=== PATIENT | female | born 1955 | race Caucasian/White ===

== ENCOUNTER → 2016-11-09 | Outpatient (CLI) | payer BC ==
[~2016-11-09] MED LIST: CALC-393 PO; CALC600T9 PO; MULTTAB5 PO; OMEG120013 PO
== END | disposition home or self-care (01) ==
LOC: C.LAB1850 07:26
PROVIDERS: ATTEND Internal Medicine
DX: E03.9 Hypothyroidism, unspecified (principal)

== ENCOUNTER → 2017-01-01 | Outpatient (CLI) | payer BC ==
[2017-01-01 13:21] LABS: ALT/SGPT 40 U/L (12-78); AST/SGOT 24 U/L (15-37); BLOOD UREA NITROGEN 14 mg/dl (7-18); BUN/CREATININE RATIO 14.9 (10-20); CALCIUM 8.7 mg/dl (8.5-10.1); CARBON DIOXIDE 26 mmol/L (21-32); CHLORIDE 109 mmol/L (98-107); CREATININE 0.92 mg/dl (0.60-1.20); GLUCOSE 106 mg/dl (70-99); POTASSIUM 3.9 mmol/L (3.5-5.1); SODIUM 142 mmol/L (136-145)
[2017-01-01 13:24] LABS: ALB/GLOB RATIO 1.1 (0.9-2); ALKALINE PHOSPHATASE 83 U/L (45-117); CHOLESTEROL 191 mg/dl (0-200); CHOLESTEROL/HDL RATIO 2.5; HDL CHOLESTEROL 76 mg/dl; LDL CHOLESTEROL CALCULATED 99 mg/dl; TRIGLYCERIDES 81 mg/dl (0-150); VERY LOW DENSITY LIPOPROT CALC 16 mg/dl
[2017-01-01 13:47] LABS: ESTIMATED AVERAGE GLUCOSE 117 mg/dl; HA1C FLAG Normal (Normal)
== END | disposition home or self-care (01) ==
LOC: C.LABPBG 07:59
PROVIDERS: ATTEND Internal Medicine
DX: Z00.00 Encounter for general adult medical examination without abnormal findings (principal)

== ENCOUNTER → 2017-09-01 | Outpatient (CLI) | payer BC ==
--- NOTE | 2017-09-01 16:00 | MAMMOGRAPHY REPORT ---
BILATERAL DIGITAL SCREENING MAMMOGRAM TOMOSYNTHESIS WITH CAD: 09/01/2017 TECHNIQUE: Breast tomosynthesis in addition to standard 2D mammography was performed. Current study was also evaluated with a Computer Aided Detection (CAD) system. COMPARISON: Comparison is made to exams dated: 12/26/2014 mammogram - [facility], 05/26/2011 mammogram, 05/22/2010 mammogram, and 05/20/2009 mammogram. BREAST COMPOSITION: There are scattered areas of fibroglandular density in both breasts. FINDINGS: No suspicious masses, calcifications, or areas of architectural distortion are noted in ei ther breast. There has been no significant interval change compared to prior exams. IMPRESSION: ACR BI-RADS CATEGORY 1: NEGATIVE There is no mammographic evidence of malignancy. A 1 year screening mammogram is recommended. The pa tient will receive written notification of the results. Approximately 10% of breast cancers are not detected with mammography. A negative mammographic report should not delay biopsy if a clinically suggestive mass is present. Joanna Crump M.D. ah/:09/01/2017 11:56:53 Extract Operator: Rachel EDUARDO(R)(M), [facility] letter sent: Normal 1/2 BI-RADS Code: ACR BI-RADS Category 1: Negative
== END | disposition home or self-care (01) ==
LOC: C.MAMM 11:28
PROVIDERS: ATTEND Internal Medicine
DX: Z12.31 Encounter for screening mammogram for malignant neoplasm of breast (principal)

== ENCOUNTER → 2018-01-01 | Outpatient (CLI) | payer BC ==
[2018-01-01 08:34] LABS: BASO % 1.1 %; BASO ABS # 0.05 K/uL (0-0.2); EOS % 1.5 %; EOS ABS # 0.07 K/uL (0-0.5); HEMATOCRIT 41.2 % (37-47); HEMOGLOBIN 14.5 g/dL (12.0-16.0); IG# 0.01 K/uL (0.00-0.02); LYMPH % 32.3 %; MEAN CELL VOLUME 87.8 fL (80-100); MEAN CORPUSCULAR HEMOGLOBIN 30.9 pg (25-34); MEAN CORPUSCULAR HGB CONC 35.2 g/dl (32-36); MEAN PLATELET VOLUME 8.8 fL (7.4-10.4); MONO % 6.7 %; MONO ABS # 0.31 K/uL (0.11-0.59); NEUT % 58.2 %; NEUT ABS # 2.71 K/uL (1.4-6.5); PLATELET COUNT 276 K/uL (130-400); WHITE BLOOD COUNT 4.65 K/uL (4.8-10.8)
[2018-01-01 08:45] LABS: HEMOGLOBIN A1C 5.8 % (4.5-5.6)
[2018-01-01 09:10] LABS: BLOOD UREA NITROGEN 13 mg/dl (7-18); CALCIUM 9.2 mg/dl (8.5-10.1); CARBON DIOXIDE 26 mmol/L (21-32); CHOLESTEROL 201 mg/dl (0-200); CREATININE 1.01 mg/dl (0.60-1.20); GLUCOSE 99 mg/dl (70-99)
[2018-01-01 09:18] LABS: ALKALINE PHOSPHATASE 85 U/L (45-117); ALT/SGPT 36 U/L (12-78); AST/SGOT 24 U/L (15-37); LDL CHOLESTEROL CALCULATED 114 mg/dl; POTASSIUM 3.7 mmol/L (3.5-5.1); SODIUM 140 mmol/L (136-145); TOTAL PROTEIN 7.3 gm/dl (6.4-8.2)
== END | disposition home or self-care (01) ==
LOC: C.LAB 08:10
PROVIDERS: ATTEND Internal Medicine
DX: Z00.00 Encounter for general adult medical examination without abnormal findings (principal); E78.5 Hyperlipidemia, unspecified; L92.0 Granuloma annulare; M54.9 Dorsalgia, unspecified; R73.09 Other abnormal glucose; E03.9 Hypothyroidism, unspecified

== ENCOUNTER → 2018-04-11 | Outpatient (CLI) | payer BC ==
[~2018-04-11] MED LIST changes: -CALC-393 PO; -CALC600T9 PO; +IBUP-1050 PO; +LEVO50TA6 PO; -OMEG120013 PO
[2018-04-11 16:59] LABS: ALBUMIN 3.9 gm/dl (3.4-5.0); ALKALINE PHOSPHATASE 78 U/L (45-117); ALT/SGPT 30 U/L (12-78); AST/SGOT 18 U/L (15-37); BLOOD UREA NITROGEN 13 mg/dl (7-18); CALCIUM 8.7 mg/dl (8.5-10.1); CARBON DIOXIDE 26 mmol/L (21-32); CREATININE 0.88 mg/dl (0.60-1.20); GLUCOSE 92 mg/dl (70-99); POTASSIUM 3.7 mmol/L (3.5-5.1); SODIUM 138 mmol/L (136-145); TOTAL PROTEIN 7.2 gm/dl (6.4-8.2)
== END | disposition home or self-care (01) ==
LOC: C.LABPBG 12:36
PROVIDERS: ATTEND Physician Assistant
DX: Z01.818 Encounter for other preprocedural examination (principal)

== ENCOUNTER → 2018-04-22 | Day surgery (SDC) | payer BC ==
[2018-04-06 10:12] VITALS: BMI 36.0
--- NOTE | 2018-04-21 14:38 | History and Physical ---
History & Physical Date Apr 21, 2018. Chief Complaint left foot pain History of Present Illness The patient is a 62 year old female with complaints of chronic left foot pain. She was treated conservatively for 1st MTP DJD but she failed all conservative management. She is now being set up for surgical tx. Past Medical/Surgical History PMH: hypothyroidism Past surgical hx: tubal ligation, tonsillectomy Social hx: Denies tobacco use Fam. Hx: noncontributory Allergies Coded Allergies: No Known Allergies (Unverified , 04/06/18) Home Medications Scheduled Ibuprofen (Advil), 400-600 MG PO Q6H Levothyroxine Sodium (Levothyroxine Sodium), 1 TAB PO QAM Multiple Vitamins W/ Minerals (Centrum), 1 TAB PO PRN Physical Examination Skin: warm/dry, no rash Eyes: normal inspection ENT: normal ENT inspection Head: normocephalic, atraumatic Neck: supple, no adenopathy, trachea midline Respiratory/Chest: lungs clear, normal breath sounds, no respiratory distress Cardiovascular: regular rate, rhythm Abdomen / GI: normal bowel sounds, non tender Extremities: + pertinent finding (Left foot: antalgic gait. No ecchymosis or erythema. Swelling of the 1st MTP joint. Tender 1st MTP joint. Painful PROM with crepitation.) Neurologic/Psych: no motor/sensory deficits, alert, oriented x 3 Diagnosis Left foot 1st MTP DJD Plan of Treatment Patient will be scheduled for 04.22.18 for a left foot 1st MTP hemiarthroplasty with Cartiva implant, cheilectomy of the 1st MTP joint. All potential risks, benefits, complications, alternatives, and rehab have been discussed with the patient and she wishes to proceed.
[~2018-04-22] VITALS: Ht 157.5 cm; Wt 90.0 kg
[~2018-04-22] MED LIST changes: +ASPI-320 PO; +ATROPINE SULFATE 0.1 MG/ML 5ML SYR IV PRN; +BACITRACIN 50000 UNIT VIAL ONE; +CEFAZOLIN SOD 2000MG/15 ML IV PUSH ONE; +DEXAMETHASONE SOD INJ 4 MG/ML VIAL ONE; +EpHEDrine SULFATE 50MG/5ML SYR ONE; +EpHEDrine SULFATE INJ 50 MG/ML AMP IV PRN; +FENTANYL CITRATE INJ 50 MCG/1 ML 2 ML VIAL IV PRN; +FENTANYL CITRATE INJ 50 MCG/1 ML 2 ML VIAL ONE; +FLUMAZENIL 0.1 MG/1 ML 10 ML VIAL IV PRN; +HYDROmorphone INJ 2 MG/ML SYR/VIAL IV PRN; +LABETALOL HCL IV 5 MG/ML 20ML IV PRN; +LACTATED RINGER'S 1000ML 1,000 ML IV SCH; +LIDOCAINE HCL 2% 2 ML VIAL (20MG/ML) ONE; +MEPERIDINE HCL 25 MG/ML CARP IV PRN; +MIDAZOLAM HCL 1 MG/ML 2ML VIAL ONE; +NALOXONE HCL 0.4 MG/1 ML VIAL/CARP IV PRN; +NURSING VERBAL MED ORDER ONE; +ONDANSETRON INJ 2 MG/ML 2 ML VIAL IV PRN; +ONDANSETRON INJ 2 MG/ML 2 ML VIAL ONE; +OXYC-57 PO; +OXYCODONE/ACETAMINOPHEN 5-325 TAB PO PRN; +PHENYLEPHRINE 100MCG/ML 5ML SYR IV PRN; +PROPOFOL IV EMULSION 10 MG/ML 20 ML VIAL ONE; +ROPIVACAINE 0.5% 5 MG/ML 30 ML VIAL ONE
[2018-04-22 07:13] VITALS: BP 168/95; PULSE 69; TEMP 36.7; O2SAT 97; Ht 157.5 cm; Wt 90.0 kg
--- NOTE | 2018-04-22 07:28 | History & Physical Bridge Note ---
H&P Re-Evaluation Bridge Note: I have examined the patient, reviewed the History & Physical and in the interval since the performance of the History & Physical I have noted the following changes of clinical significance: No changes noted
[2018-04-22 07:36] LABS: HEMATOCRIT 41.8 % (37-47); HEMOGLOBIN 13.8 g/dL (12.0-16.0); MEAN CELL VOLUME 87.3 fL (80-100); MEAN CORPUSCULAR HEMOGLOBIN 28.8 pg (25-34); PLATELET COUNT 253 K/uL (130-400); RED CELL DISTRIBUTION WIDTH CV 14.1 % (11.5-14.5); RED CELL DISTRIBUTION WIDTH SD 45.1 fL (36.4-46.3); WHITE BLOOD COUNT 4.91 K/uL (4.8-10.8)
--- NOTE | 2018-04-22 10:00 | Discharge Instructions ---
Discharge Instructions Date of Service Apr 22, 2018. Admission Reason for Admission: Left Ankle/Foot Osteoarthritis Discharge Discharge Diagnosis / Problem: left foot 1st metatarsophalangeal arthritis Discharge Goals Goal(s): Decrease discomfort, Improve function Activity Recommendations Activity Limitations: per Instructions/Follow-up section Weightbearing Status: Left partial (heel weightbearing) . Instructions / Follow-Up Instructions / Follow-Up ACTIVITY RECOMMENDATIONS: Limitations: Heel weight bearing only if able to tolerate. SPECIAL CARE INSTRUCTIONS: * You may begin gentle passive range of motion with the great toe when it feels comfortable. Passive range of motion is using your hand to manipulate the toe. * Take Aspirin 81 mg daily for 30 days post operatively. Start tomorrow, 8.4.18. * Some drainage onto the dressing is normal and is no cause for alarm. * Some swelling is natural especially after walking. * When resting, keep your foot elevated above the level of your heart. * Call [facility] if you notice: -Increased drainage -Fever over 101 degrees F -Severe constant pain BANDAGE: * Leave bandage/cast in place unless otherwise directed. * Keep bandage/cast dry at all times. PIN CARE: * Leave pins alone. * If pins come loose or fall out, notify physician. FOLLOW UP VISIT WITH DR. AMATO If appointment is not already scheduled: Please call [facility] after you get home today to schedule a follow-up appointment for [address] Amato at . Current Hospital Diet Patient's current hospital diet: Discharge Diet Recommended Diet: Regular Diet Pending Studies Studies pending at discharge: no Medical Emergencies . Who to Call and When: Medical Emergencies: If at any time you feel your situation is an emergency, please call [phone] immediately. . Non-Emergent Contact Non-Emergency issues call your: Surgeon Call Non-Emergent contact if: temperature is above 101, your pain is not controlled, your pain is worsening . "Provider Documentation" section prepared by Douglas Marion. .
--- NOTE | 2018-04-22 10:29 | [facility] Post Operative Brief Note ---
Immediate Operative Summary Operative Date Apr 22, 2018. Pre-Operative Diagnosis Left Foot First Metatarsophalangeal Degenerative Joint Disease, Hallux Rigidus Post-Operative Diagnosis Left Foot First Metatarsophalangeal Degenerative Joint Disease, Hallux Rigidus Procedure(s) Performed 1. Left Foot Hemiarthroplasty with Cartiva Implant 2. Cheilectomy 1st Metatarsophalangeal Joint Surgeon Dr. Gregory Wallace Emergency Department Manager Surgeon(s) Dwight Condon PA-C Estimated Blood Loss 1ml Findings Consistent with Post-Op Diagnosis Specimens None per surgeon Drains None Anesthesia Type General Regional Complication(s) none Disposition Accompanied Pt To Recover: no Disposition: Recovery Room / PACU
--- NOTE | 2018-04-22 11:14 | OPERATIVE REPORT ---
DATE OF OPERATION: 04/22/2018 PREOPERATIVE DIAGNOSES: 1. Left foot first metatarsophalangeal joint degenerative joint disease. 2. Hallux rigidus, left first metatarsophalangeal. POSTOPERATIVE DIAGNOSES: 1. Left foot first metatarsophalangeal joint degenerative joint disease. 2. Hallux rigidus, left first metatarsophalangeal. PROCEDURE: 1. Left first metatarsophalangeal joint hemiarthroplasty, using a size 10 mm Cartiva implant. 2. Cheilectomy of the first metatarsophalangeal joint. SURGEON: DO JONATHAN Machuca ASSIST: DARLENE Sood who was present for patient positioning, sterile prep and drape, management of retractors and instruments. He was present through the critical portions of the case including wound closure, application of sterile dressing and transport of the patient to recovery. ANESTHESIA: General LMA with popliteal block. SPECIMENS: None. DRAINS: None. COMPLICATIONS: None. BLOOD LOSS: 1 mL. PERTINENT HISTORY: This is a 62-year-old woman who has a chronic progressive and worsening left foot pain, deformity and swelling of the first metatarsophalangeal joint. She attempted and failed conservative management including anti-inflammatories, topical anti-inflammatories, physician directed home exercises, shoe wear modification, modification of activities and steroid injections. The patient had radiographic evidence of loss of joint space of the left foot first metatarsophalangeal joint with marginal osteophytes, subchondral sclerosis and subchondral cyst formation. The patient was scheduled for surgery as indicated. All potential risks, benefits, complications, alternatives, rehab, potential for incomplete relief of symptoms, need for further surgery, DVT, PE, , persistent pain, swelling, scarring, weakness, neurovascular injury, wound complications, hardware failure, nonunion, malunion were discussed with the patient. The patient decided to proceed with the procedure as indicated. DESCRIPTION OF PROCEDURE: Popliteal block was administered in the preoperative suite. The patient was then taken to operative suite, placed supine on the operating room table. After reviewing consent and identification of proper operative site, the patient was anesthetized, LMA was placed. Pneumatic tourniquet was placed high on the left thigh over cast padding; however, was not used during the case. Next, the left lower extremity was then sterilely prepped and draped in the usual fashion, elevated, and exsanguinated with an Esmarch bandage and Esmarch tourniquet applied over sterile surgical towel at the level of the ankle. Next, a 15 blade scalpel incision was made over the dorsum of the left foot first metatarsophalangeal joint. The incision was deepened through subcutaneous tissue. Meticulous hemostasis was achieved with electrocautery. Full thickness skin flaps were developed. Bertha rakes were used to retract soft tissues. The extensor hallucis longus was then identified, freed and then retracted laterally with a Weitlaner. Next, the dorsal capsule was incised in line with skin incision with 15 blade scalpel. The capsule was then sharply elevated from the joint with 15 blade scalpel and Bertha rake retraction. Next, the rongeur was then used to debride the hypertrophic synovium and also to remove bone spurs and exostoses from the first metatarsal head and the proximal phalanx. After the joint was then smoothed and contoured appropriately with the rongeur, a large McGlamry elevator was placed in the joint and used to release any soft tissue contractures. Dorsiflexion was approximately 90 degrees achieved with 40 degrees of plantar flexion. Next, a guide pin for the Cartiva implant system was then drilled into the first metatarsal under live fluoroscopic assistance. This was then followed by use of the reamer. This was left approximately 2 mm prominent to produce increased bossing of the implant. Next, the guide pin was removed. The joint was copiously irrigated with sterile normal saline until clear and a 10 mm Cartiva implant was then implanted. Range of motion was excellent, noted to be approximately 85 degrees dorsiflexion and 30 degrees plantar flexion. The joints noted to be stable. The wound was copiously irrigated with sterile normal saline and the dorsal capsule was then closed using interrupted 3-0 Vicryl. Next, the skin was closed using 4-0 nylon sutures. Next, the sterile compressive dressing was applied, overwrapped with Coban. The final radiographs were obtained. The tourniquet was released, the patient was awakened and taken to recovery in stable condition. I attest to the content of the Intraoperative Record and any orders documented therein. Any exception s are noted below.
--- NOTE | 2018-04-22 11:19 | Anesthesiology Progress Note ---
Anesthesia Post Op Note Date & Time Apr 22, 2018 at 11:19 Vital Signs Pain Intensity: 0 Vital Signs Past 12 Hours Date Time Temp Pulse Resp B/P (MAP) Pulse Ox O2 Delivery O2 Flow Rate FiO2 04/22/18 11:10 36.5 60 16 147/97 98 Room Air 04/22/18 11:00 66 18 147/77 99 Room Air 04/22/18 10:50 60 14 146/79 100 Mask 10 04/22/18 10:40 62 16 141/78 100 Mask 10 04/22/18 10:31 36.6 70 16 144/78 100 Mask 10 04/22/18 07:13 36.7 69 18 168/95 (119) 97 Room Air Notes Mental Status: alert / awake / arousable, participated in evaluation Pt Amnestic to Procedure: Yes Nausea / Vomiting: adequately controlled Pain: adequately controlled Airway Patency, RR, SpO2: stable & adequate BP & HR: stable & adequate Hydration State: stable & adequate Anesthetic Complications: no major complications apparent
[2018-04-22 12:05] VITALS: BP 152/87; PULSE 64; TEMP 36.5; O2SAT 95
--- NOTE | 2018-04-22 12:16 | DIAGNOSTIC IMAGING REPORT ---
L FOOT 2 VIEWS CLINICAL HISTORY: LT HEMIARTHROPLASTY WITH IMPLANT COMPARISON STUDY: None. FINDINGS: Total fluoroscopy time was 8 seconds. 3 fluoroscopic spot images of the left forefoot. Subchondral lucency at the MTP joint which may represent degenerative or postoperative change. No metallic prosthetic identified. IMPRESSION: Fluoroscopy provided for postoperative changes within the left forefoot. Electronically signed by: Alex Blanchard M.D. 04/22/2018 12:15 PM Dictated Date/Time: 04/22/2018 12:07 PM
== END | disposition home or self-care (01) ==
LOC: C.ACU 06:41
PROVIDERS: ATTEND Orthopaedic Surgery Sports Medicine
DX: M20.22 Hallux rigidus, left foot (principal); M19.072 Primary osteoarthritis, left ankle and foot; M19.90 Unspecified osteoarthritis, unspecified site; E66.9 Obesity, unspecified; E03.9 Hypothyroidism, unspecified